=== PATIENT | female | born 1975 | race Hispanic/Latino ===

== ENCOUNTER 2022-10-19 07:10 | Emergency (ER) | payer OTHER ==
[~2022-10-19] VITALS: Ht 154.9 cm; Wt 49.0 kg
[2022-10-19 07:17] VITALS: BP 136/88
[2022-10-19 07:30] VITALS: BP 110/61
[2022-10-19 07:45] VITALS: BP 106/68
[2022-10-19 08:01] VITALS: BP 118/79
[2022-10-19] MEDS ORDERED: CEFDINIR300 MG PO (08:06)
[2022-10-19] MEDS ORDERED: ZYRTEC10 M5 PO (08:06)
[2022-10-19 08:15] VITALS: BP 110/55
[2022-10-19 08:28] VITALS: BP 102/71
== END 2022-10-19 08:31 | disposition home or self-care (01) | DRG 125 ==
LOC: ED 07:10
DX: H00.014 Hordeolum externum left upper eyelid (principal); F41.9 Anxiety disorder, unspecified

== ENCOUNTER 2023-04-02 07:48 | Emergency (ER) | payer OTHER ==
[~2023-04-02] VITALS: Ht 154.9 cm; Wt 52.1 kg
[~2023-04-02 07:48] MED LIST: CEFDINIR300 MG PO; ZYRTEC10 M5 PO
[2023-04-02] MEDS ORDERED: REMERON15 MG PO (08:20)
[2023-04-02 08:32] LABS: BASO% 0.9 % (0-3); EOS% 0.6 % (0-8); HEMATOCRIT 38.9 % (37.0-47.0); HEMOGLOBIN 12.4 g/dl (12.0-16.0); IMMATURE GRANULOCYTES 0.1 % (0.0-5.0); MEAN CELL VOLUME 91.5 fL CALC (80.0-100.0); MEAN CORPUSCULAR HGB 29.2 pG CALC (26.0-32.0); MEAN CORPUSCULAR HGB CONC 31.9 g/dL CAL (32.0-36.0); MONO% 5.6 % (2-13); NEUT# 6.57 thou/uL (2.00-7.15); NEUT% 81.8 % (42-76); RED BLOOD COUNT 4.25 mill/uL (4.20-5.60); RED CELL DISTRI WIDTH 13.5 % (11.5-15.5)
[2023-04-02 08:47] LABS: ALBUMIN 4.3 g/dL (3.2-5.0); ALKALINE PHOSPHATASE 74 u/l (38-126); ANION GAP 12 (6-22 (CALC)); BILIRUBIN, TOTAL 0.7 mg/dL (0.02-1.3); BUN 9 mg/dL (7-17); BUN/CREATININE RATIO 12 (12-20 (CALC)); CARBON DIOXIDE 22 mmol/l (22-30); CHLORIDE 108 mmol/l (95-108); CREATININE 0.7 mg/dL (0.5-1.0); GFR FOR AFR.AMER. > 60 ML/MIN (>=60 (CALC)); GFR OTHER RACES > 60 ML/MIN (>=60 (CALC)); POTASSIUM 3.8 mmol/l (3.5-5.1); SGOT/AST 35 u/l (14-36); SODIUM 139 mmol/l (137-146); TOTAL PROTEIN 7.5 g/dL (6.3-8.2)
[2023-04-02] MEDS ORDERED: MECLIZINE 2525 MG PO (10:00)
[2023-04-02 10:10] VITALS: BP 93/64
== END 2023-04-02 10:50 | disposition home or self-care (01) | DRG 149 ==
LOC: ED 07:48
PROVIDERS: Family Medicine
DX: H81.11 Benign paroxysmal vertigo, right ear (principal); F41.9 Anxiety disorder, unspecified